=== PATIENT | female | born 1990 | race American Indian/Alaskan Native ===

== ENCOUNTER 2020-11-17 17:11 | Outpatient (CLI) | payer MEDICAID ==
[2020-11-17 17:46] VITALS: BP 112/70
[2020-11-17] MEDS ORDERED: LACTATED RINGERS 1,000 ML IV SCH (18:00)
[2020-11-17 18:20] LABS: Bilirubin,Urine NEG (Negative); Blood,Urine NEG (Negative); Color,Urine Yellow (Yellow); Mucus,Urine FEW /HPF
== END 2020-11-17 19:11 | disposition home or self-care (01) ==
LOC: TRG 17:11 → APU 17:12 → TRG 19:11
PROVIDERS: ATTEND Obstetrics & Gynecology
DX: O62.4 Hypertonic, incoordinate, and prolonged uterine contractions (principal); Z3A.35 35 weeks gestation of pregnancy
CPT/HCPCS: 81001

== ENCOUNTER 2020-12-03 08:51 | Inpatient (IN) | payer MEDICAID ==
[2020-12-03] MEDS ORDERED: BICITRA ORAL LIQD 30ML PO NR (09:20)
[2020-12-03] MEDS ORDERED: FAMOTIDINE 20 MG/2 ML INJ IV NR (09:20)
[2020-12-03] MEDS ORDERED: METOCLOPRAMIDE 10 MG/2 ML INJ IV NR (09:20)
[2020-12-03] MEDS ORDERED: NALOXONE 0.4 MG/1 ML INJ IV PRN ×2 (09:38→13:00)
[2020-12-03] MEDS ORDERED: NalbUPHINE 10 MG/1 ML INJ IV PRN (09:38)
[2020-12-03] MEDS ORDERED: PROMETHAZINE 25 MG RECT SUPP PR PRN (09:38)
--- NOTE | 2020-12-03 09:39 | Anesthesia Day of Surgery ---
Anesthesia Day of Surgery - Day of Surgery Patient Examined: Yes Patient H&P Reviewed: Yes Patient is NPO: Yes Beta Blockers: No Cardiac Clearance: No Pulmonary Clearance: No Ky's Test: N/A
--- NOTE | 2020-12-03 09:42 | Anesthesia Consultation ---
Anesthesia Consult and Med Hx Date of service: 12/03/20 - Airway Anesthetic Teeth Evaluation: Good ROM Head & Neck: Adequate Mental/Hyoid Distance: Adequate Mallampati Class: Class II Intubation Access Assessment: Probably Good - Pulmonary Exam CTA: Yes - Cardiac Exam Cardiac Exam: RRR - Pre-Operative Health Status ASA Pre-Surgery Classification: ASA2 Proposed Anesthetic Plan: Epidural - Pulmonary Hx Smoking: No Hx Asthma: No Hx Sleep Apnea: No - Cardiovascular System Hx Hypertension: No Hx Heart Attack/AMI: No Hx Angina: No - Central Nervous System Hx Seizures: No Hx Psychiatric Problems: No - Gastrointestinal Hx Gastroesophageal Reflux Disease: No - Endocrine Hx Renal Disease: No Hx Insulin Dependent Diabetes: No Hx Non-Insulin Dependent Diabetes: No Hx Hypothyroidism: No Hx Hyperthyroidism: No - Hematic Hx Anemia: No Hx Sickle Cell Disease: No - Other Systems Hx Alcohol Use: No
[2020-12-03] MEDS ORDERED: HYDROmorphone 1 MG/1 ML INJ IV PRN (10:00)
[2020-12-03] MEDS ORDERED: OXYTOCIN DRIP 30 UNITS/500 ML BAG IV SCH ×2 (10:00→13:00)
[2020-12-03] MEDS ORDERED: PROMETHAZINE 25 MG TAB PO PRN (10:00)
[2020-12-03] MEDS ORDERED: diphenhydrAMINE 50 MG/ML VIAL IV PRN (10:00)
[2020-12-03] MEDS ORDERED: ceFAZolin/Water 2 GM/20 ML 2 GM/20 ML SYRINGE IV NR (10:00)
[2020-12-03] MEDS ORDERED: ONDANSETRON 4 MG/2 ML INJ IV PRN ×2 (10:00→13:00)
[2020-12-03] MEDS: LACTATED RINGERS 1,000 ML IV SCH ×3 (10:01→15:41)
--- NOTE | 2020-12-03 10:33 | History and Physical Report ---
History of Present Illness Date of examination: 12/03/20 Date of admission: 12/03/20 08:51 History of present illness: 30-year-old G1, P0 is at 37 weeks and 2 days today and was advised to proceed with primary low transverse at this point by [facility] due to her history of myomectomy. History of hyperprolactinemia but no medications and no issues during her regarding this. Counseling was done via the patient's mother since the patient has a learning disability. Other than anemia, no other issues during the . Past History Past Medical History: other (Hyperprolactinemia, anemia) Past Surgical History: myomectomy (Open) Social history: other (Learning disability) - Obstetrical History Expected Date of Delivery: 12/22/20 Actual Gestation: 37 Week(s) 2 Day(s) : 1 Para: 0 Medications and Allergies Allergies Allergy/AdvReac Type Severity Reaction Status Date / Time No Known Allergies Allergy Verified 11/17/20 17:50 Active Meds: Active Medications Citric Acid/Sodium Citrate (Bicitra Oral Liqd 30ml) 30 ml PO ONCE NR Stop: 12/03/20 13:00 Diphenhydramine HCl (Diphenhydramine 50 Mg/Ml Vial) 12.5 mg IV Q2H PRN PRN Reason: Itching Famotidine (Famotidine 20 Mg/2 Ml Inj) 20 mg IV ONCE NR Stop: 12/03/20 16:00 Hydromorphone HCl (Hydromorphone 1 Mg/1 Ml Inj) 0.5 mg IV Q4H PRN PRN Reason: breakthrough pain > 7/10 Lactated Ringer's (Lactated Ringers) 1,000 mls @ 2,250 mls/hr IV PREOP JUAREZ Stop: 12/04/20 09:57 Last Admin: 12/03/20 10:01 Dose: 2,250 mls/hr Documented by: Oxytocin/Sodium Chloride (Pitocin/Ns 30 Unit/500ml) 30 units in 500 mls @ 0 mls/hr IV TITR JUAREZ; Protocol Cefazolin Sodium (Ancef/Sterile Water 2 Gm/20 Ml) 2 gm in 20 mls @ 80 mls/hr IV PREOP NR; Protocol Stop: 12/03/20 20:00 Metoclopramide HCl (Metoclopramide 10 Mg/2 Ml Inj) 10 mg IV ONCE NR Stop: 12/03/20 16:00 Nalbuphine HCl (Nalbuphine 10 Mg/1 Ml Inj) 2.5 mg IV Q2H PRN PRN Reason: Itching Naloxone HCl (Naloxone 0.4 Mg/1 Ml Inj) 0.2 mg IV Q2MIN PRN PRN Reason: Res Rate </= 8 or 02 SAT < 92% Ondansetron HCl (Ondansetron 4 Mg/2 Ml Inj) 4 mg IV Q8H PRN PRN Reason: Nausea And Vomiting Promethazine HCl (Promethazine 25 Mg Tab) 25 mg PO Q6H PRN PRN Reason: Nausea And Vomiting Promethazine HCl (Promethazine 25 Mg Rect Supp) 25 mg [place] Q6H PRN PRN Reason: Nausea And Vomiting Review of Systems All systems: negative (Except HPI) - Vital Signs Vital signs: Vital Signs Pulse BP Pulse Ox 112 H 108/71 100 12/03/20 09:42 12/03/20 09:42 12/03/20 09:42 Temp Pulse Resp BP Pulse Ox 96 H 108/71 100 12/03/20 10:27 12/03/20 09:42 12/03/20 10:27 - Physical Exam Cardiovascular: Regular rate Lungs: Positive: Clear to auscultation, Normal air movement Abdomen: Positive: normal appearance, soft. Negative: tenderness Results All other labs normal. Assessment and Plan - Patient Problems (1) History of myomectomy Current Visit: Yes Status: Acute Plan to address problem: Patient here today for her scheduled primary low transverse . Patient and her mother fully consented for the surgery. Risks, benefits, and alternatives were all discussed with the patient including risk of bleeding, infection, and potential for injury. Patient understands and accepts these risks. Patient agrees to proceed with surgery. All questions were answered. Patient and her mother agree to proceed with Pfannenstiel incision.
[2020-12-03 11:11] LABS: Hematocrit 29.8 % (30.3-42.9); Hemoglobin 9.6 gm/dl (10.1-14.3); Mean Corpuscular HGB Conc 32 % (30-34); Mean Corpuscular Volume 72 fl (79-97); Platelet Count 137 K/mm3 (140-440); Red Blood Count 4.16 M/mm3 (3.65-5.03); Red Cell Distribution Width 17.9 % (13.2-15.2)
[2020-12-03 11:18] LABS: Basophils % (Auto) 0.2 % (0.0-1.8); Eosinophils % (Auto) 0.8 % (0.0-4.3); Lymphocytes # (Auto) 1.3 K/mm3 (1.2-5.4); Lymphocytes % (Auto) 12.7 % (13.4-35.0); Monocytes # (Auto) 0.6 K/mm3 (0.0-0.8); Monocytes % (Auto) 5.6 % (0.0-7.3)
[2020-12-03 11:19] LABS: Eosinophils # (Auto) 0.1 K/mm3 (0.0-0.4)
[2020-12-03] MEDS ORDERED: dexAMETHasone 20 MG/5 ML VIAL ONE (11:23)
[2020-12-03] MEDS ORDERED: BUPIVACAINE/PF (0.5%) 5 MG/1 ML 30 ML VIAL INFILTRATI ONE (11:23)
[2020-12-03] MEDS ORDERED: ONDANSETRON 4 MG/2 ML INJ ONE (11:23)
[2020-12-03] MEDS ORDERED: KETOROLAC 30 MG/1 ML INJ ONE (11:23)
[2020-12-03] MEDS ORDERED: ceFAZolin/STERILE WATER 2 GM/20 ML SYRINGE IV ONE (11:30)
[2020-12-03] MEDS ORDERED: LACTATED RINGERS 1,000 ML ONE (11:31)
--- NOTE | 2020-12-03 11:58 | Progress Note ---
Spinal Anesthesia Block - Spinal Anesthesia Block Start Time: 11:30 Stop Time: 11:50 Performed by:: ARMANDO MCFARLAND (Valerie ROSAS) Procedure: Spinal anesthesia block is being performed for [C/S]. H&P, labs have been reviewed. Patient's questions and concerns have been answered. Informed consent has been performed. Timeout has was performed. Patient in sitting position on side of bed. Sterile prep and drape was performed. 3 mL 1% l idocaine skin wheal at L [2]-L [3]. Needle introducer advanced. 25-gauge spinal needle advanced, [+] CSF [-] blood. [Marcaine 9mg and Precedex 5mcg] Spinal dose was given. All needles removed. Patient tolerated procedure well.
[2020-12-03] MEDS ORDERED: SODIUM CHLORIDE 0.9% IRR 1,500 ML BOTTLE IR ONE (11:59)
[2020-12-03] MEDS ORDERED: WATER FOR IRRIG STERILE 1,500 ML BOTTLE IR ONE (11:59)
[2020-12-03] MEDS ORDERED: WITCH HAZEL/ GLYCERIN PAD TP PRN (13:00)
[2020-12-03] MEDS ORDERED: LANOLIN/ZINC/DIMETHICONE (LANSINOH) 7 GM TP PRN (13:00)
[2020-12-03] MEDS ORDERED: SIMETHICONE 80 MG CHEW TAB PO PRN (13:00)
[2020-12-03] MEDS ORDERED: oxyCODONE /ACETAMINOPHEN 5-325MG TAB PO PRN (13:00)
--- NOTE | 2020-12-03 13:01 | Procedure Note ---
OB Delivery Note - Delivery Date of Delivery: 12/03/20 Surgeon: ELIECER RODRIGUEZ Estimated blood loss: other (800 cc) - Section Preop diagnosis: other (History of myomectomy) Postop diagnosis: same section procedure: section, primary low transverse Disposition: PACU Complications: none Narrative: Indication: Patient is a 30-year-old G1, P0 at 37 weeks and 2 days. Because of her history of myomectomy, patient is here for her scheduled primary low transverse . Findings: Normal uterus, tubes and ovaries except for significant scarring of the bladder to the anterior uterine wall. Clear fluid. Loose nuchal cord x1. Procedure: Patient taken to the operating room and prepped and draped in the usual fashion. Pfannenstiel skin incision was made and carried down to the underlying fascia. Fascia was incised and the incision was extended bilaterally. Rectus fascia dissected off the rectus muscle both superiorly and inferiorly. Peritoneum identified tented up and entered. Peritoneal incision extended superiorly and inferiorly with good visualization of the bladder. Because of the scarring of the bladder, a bladder flap was created. Bladder blade was placed. Uterine incision was made and the incision was extended bilaterally. The baby was delivered in the typical vertex fashion. Baby bulb suctioned at the incision site and again after delivery. Cord was delayed clamped and cut and handed off to waiting team. The placenta was delivered spontaneously. The uterus was exteriorized and cleared of all clots and debris. Uterine incision closed with 0 Vicryl in a running locked fashion followed by a second imbricating layer of 0 Vicryl. Good hemostasis was noted after a couple of additional [id number] stitches. Her urine was clear. Uterus tubes and ovaries were returned to the abdominal cavity. Gutters were cleared of all clots and debris. Good hemostasis noted. Interceed placed over the uterine incision and over the lower uterine segment in the midline. Attention was turned to the rectus fascia which was reapproximated with 0 Vicryl in a running fashion. Subcutaneous tissue was irrigated and reapproximated with 2-0 Vicryl in a running fashion. Skin was closed with 4-0 Vicryl in a subcuticular fashion followed by Dermabond. The procedure was concluded at this point and the patient tolerated the procedure well. All instrument and lap counts were correct. - Infant A at 1 minute: 8 at 5 minutes: 9 Gender: Female
--- NOTE | 2020-12-03 13:23 | Progress Note ---
Regional Anesthesia Block - Regional Anesthesia Block Start Time: 13:05 Stop Time: 13:15 Performed By:: ARMANDO MCFARLAND (Valerie Bridges RALPH) Procedure: Patient consented for TAP block for post surgical pain management. Patient identified, monitors placed, and time out performed. Mid axillary TAP identified bilaterally via ultrasound. Skin prepped bilaterally with [chlorhexidine] and [20g stimuplex] needle advanced to the TAP. 30ml [Marcaine 0.25% with 25mcg Precedex and Decadron 4mg] injected under ultrasound guidance on the [left] side. 30ml [Marcaine 0.25% with 25mcg Precedex and Decadron 4mg] injected under ultrasound guidance on the [right] side.
[2020-12-03] MEDS: KETOROLAC 30 MG/1 ML INJ IV PRN (16:23)
[2020-12-03] MEDS ORDERED: SENNOSIDES 8.6 MG TAB PO PRN (22:00)
[2020-12-03] MEDS ORDERED: MAGNESIUM HYDROXIDE (MOM) ORAL LIQD UDC PO PRN (22:00)
[2020-12-04] MEDS: KETOROLAC 30 MG/1 ML INJ IV PRN ×2 (00:05→09:30)
[2020-12-04] MEDS: LACTATED RINGERS 1,000 ML IV SCH (00:05)
[2020-12-04 06:36] LABS: Hematocrit 25.7 % (30.3-42.9)
--- NOTE | 2020-12-04 09:50 | Progress Note ---
Assessment and Plan POD # 1 A: S/P Primary LTCS COVID POS Asymptomatic anemia P: Continue routine pp care COVID isolation precautions Ferrous Sulfate prescribed Encourage ambulation D/C home within 24-48 hrs if stable Subjective - Subjective Date of service: 12/04/20 Principal diagnosis: s/p primary LTCS Patient reports: appetite normal, voiding normally, pain well controlled, ambulating normally [place]: doing well, bottle feeding Objective - Vital Signs Latest vital signs: Vital Signs Temp Pulse Resp BP BP Pulse Ox 12/04/20 00:06 98.1 F 101 H 18 106/70 99 12/03/20 17:52 98.2 F 82 19 106/70 100 12/03/20 14:36 97.5 F L 75 19 102/49 100 12/03/20 13:55 69 12 105/67 100 12/03/20 13:40 97.6 F 90 14 110/73 100 12/03/20 13:25 79 15 100/54 100 12/03/20 13:15 102/58 12/03/20 13:10 76 16 127/17 100 12/03/20 13:05 87 17 119/21 100 12/03/20 13:00 97.3 F L 102 H 15 108/48 100 12/03/20 11:22 127 H 100 12/03/20 11:17 138 H 100 12/03/20 11:15 98 H 113/64 12/03/20 11:13 98.8 F 22 12/03/20 11:12 111 H 100 12/03/20 11:07 108 H 100 12/03/20 11:02 101 H 100 12/03/20 10:57 121 H 100 12/03/20 10:52 113 H 100 12/03/20 10:47 115 H 100 12/03/20 10:42 111 H 100 12/03/20 10:37 102 H 100 12/03/20 10:32 97 H 100 12/03/20 10:27 96 H 100 12/03/20 10:22 98 H 100 12/03/20 10:17 104 H 99 12/03/20 10:12 97 H 99 12/03/20 10:07 101 H 98 12/03/20 10:02 108 H 99 12/03/20 09:57 112 H 99 12/03/20 09:52 103 H 99 12/03/20 09:47 116 H 98 Intake and Output 12/03/20 12/04/20 12/04/20 22:59 06:59 14:59 Intake Total 1640 300 Output Total 400 1400 Balance 1240 -1100 Intake: IV 1000 Lactated Ringers 1,000 ml 1000 @ 2250 mls/hr IV PREOP JUAREZ Rx#:[id number] Oral 540 Intake, Free Water 100 300 Output: Urine 400 1400 Indwelling Catheter 400 800 Void 600 Other: Total, Intake Amount 240 Total, Output Amount 200 600 # Voids Indwelling Catheter 1 Void 1 - Exam Breasts: Present: normal Abdomen: Present: normal appearance, soft, normal bowel sounds Vulva: both: normal Uterus: Present: normal, firm, fundal height below umbilicus Extremities: Present: normal Incision: Present: normal, dry, intact - Labs Labs: Abnormal lab results 12/03/20 12/03/20 12/04/20 Range/Units 09:30 Unknown 05:48 Hgb 9.6 L 8.0 L (10.1-14.3) gm/dl Hct 29.8 L 25.7 L (30.3-42.9) % MCV 72 L (79-97) fl MCH 23 L (28-32) pg RDW 17.9 H (13.2-15.2) % Plt Count 137 L (140-440) K/mm3 Lymph % (Auto) 12.7 L (13.4-35.0) % Seg Neutrophils % 80.7 H (40.0-70.0) % Seg Neutrophils # 8.4 H (1.8-7.7) K/mm3 Coronavirus (PCR) Positive A (Negative)
[2020-12-04] MEDS ORDERED: IBUPROFEN 800 MG TAB PO PRN (13:00)
[2020-12-04] MEDS: FERROUS SULFATE 325 MG TAB PO SCH (21:54)
[2020-12-05] MEDS: FERROUS SULFATE 325 MG TAB PO SCH (10:20)
--- NOTE | 2020-12-05 11:32 | Discharge Summary ---
Providers - Providers Date of Admission: 12/03/20 08:51 Date of discharge: 12/05/20 Attending physician: ELIECER RODRIGUEZ Primary care physician: ELIECER RODRIGUEZ Hospitalization Reason for admission: section Delivery: Procedure: primary low transverse Episiotomy: none Laceration: none Incision: dry, intact Other procedures: none complications: none Discharge diagnosis: IUP at term delivered, other (anemia) [place] baby: female Hospital course: See admission H & P; OB operative summary and PP progress notes Condition at discharge: Stable Disposition: DC- TO HOME OR SELFCARE - Discharge Diagnoses (1) Status post primary low transverse section Status: Acute (2) History of myomectomy Status: Acute (3) Anemia Status: Acute Qualifiers: Anemia type: iron deficiency Comment: Asymptomatic Plan - Discharge Medications Prescriptions: Ferrous Sulfate [Feosol 325 MG tab] 325 mg PO BID 30 Days #60 tablet Ibuprofen [Motrin 800 MG tab] 800 mg PO Q6H PRN #30 tablet PRN Reason: Pain, Mild (1-3) oxyCODONE /ACETAMINOPHEN [Percocet 5/325 mg] 1 tab PO Q6H PRN #30 tablet PRN Reason: Pain, Moderate (4-6) - Provider Discharge Summary Activity: routine, no sex for 6 weeks, no heavy lifting 4 weeks, no strenuous exercise Diet: other (Iron rich diet) Instructions: routine Additional instructions: [] Smoking cessation referral if applicable(refer to patient education folder for contact #) [] Refer to [facility]'s [facility] Booklet Call your doctor immediately for: * Fever > 100.5 * Heavy vaginal bleeding ( >1 pad per hour) * Severe persistent headache * Shortness of breath * Reddened, hot, painful area to leg or breast * Drainage or odor from incision. * Keep incision clean and dry at all times and follow doctor's instructions regarding bathing/showering - Follow up plan Follow up: ELIECER RODRIGUEZ MD [Primary Care Provider] - 14 Days
[2020-12-05 17:53] VITALS: BP 120/86
== END 2020-12-05 15:30 | disposition home or self-care (01) | DRG 765 ==
LOC: APU 08:51 → OB 14:59
PROVIDERS: ADMIT Obstetrics & Gynecology; ATTEND Obstetrics & Gynecology
PROC: 10D00Z1 Extraction of Products of Conception, Low, Open Approach (ICD-10-PCS; principal; 2020-12-03)
PROC: 3E0R3BZ Introduction of Anesthetic Agent into Spinal Canal, Percutaneous Approach (ICD-10-PCS; 2020-12-03)
PROC: 3E0T3BZ Introduction of Anesthetic Agent into Peripheral Nerves and Plexi, Percutaneous Approach (ICD-10-PCS; 2020-12-03)
PROC: B04BZZZ Ultrasonography of Spinal Cord (ICD-10-PCS; 2020-12-03)
DX: O34.211 Maternal care for low transverse scar from previous cesarean delivery (principal); U07.1 COVID-19; O99.02 Anemia complicating childbirth; D64.9 Anemia, unspecified; N85.8 Other specified noninflammatory disorders of uterus; Z3A.37 37 weeks gestation of pregnancy; Z37.0 Single live birth; O98.52 Other viral diseases complicating childbirth
CPT/HCPCS: 36415; 85007; 85014; 85018; 85025; 86592; 86850; 86900; 86901; G0378; C1765; J0690; J1100; J1885; J2405; J2765; J3490; J7120; U0003